=== PATIENT | male | born 1975 | race Caucasian/White ===

== ENCOUNTER 2020-05-24 10:41 | Emergency (ER) | payer BC ==
--- NOTE | 2020-05-24 13:54 | ER ---
REASON FOR EMERGENCY ROOM VISIT: Laceration, right middle finger. HISTORY: This 44-year-old man with type 2 diabetes, was doing some work on his boat before his planned fishing outing. He was using an electric screwdriver and accidentally punctured his right middle finger with it. He had some fair amount of bleeding from this, but he denies any numbness. He came in with the finger wrapped and it was not actively bleeding. He states the screwdriver was very clean. His last tetanus toxoid was in 2018. ALLERGIES: HE DENIES ANY ALLERGIES TO MEDICATIONS. MEDICATIONS: Reviewed. PHYSICAL EXAMINATION: EXTREMITIES: His right hand reveals approximately 5-6 mm v-shaped laceration of his right middle finger along the lateral aspect just proximal to the DIP joint. This is a v-shaped laceration. There is some subcutaneous fat extruding. Distal sensation is intact. His flexor and extensor tendon functions are intact. IMPRESSION; Laceration, right middle finger FURTHER EMERGENCY ROOM COURSE: The patient's tetanus booster was last administered in 2018. His hand was soaked in Hibiclens, soap and water and the finger was painted with Betadine. 1% plain Xylocaine was used for local anesthesia. Using aseptic technique, a single 1.0 monofilament 3-0 nylon suture was placed to approximate the edges. Bacitracin was applied to this, followed by a non-sticky dressing and an occlusive dressing using tube gauze. He was instructed regarding wound care, and symptoms and signs of infection and to have the suture removed in 7-10 days. There was only 1 single suture placed to approximate the skin edges. RADHA/MIKAYLA /[id number] MIGUEL
== END 2020-05-24 11:45 | disposition home or self-care (01) ==
LOC: LB.ED 10:41
DX: S61.212A Laceration without foreign body of right middle finger without damage to nail, initial encounter (principal); E11.9 Type 2 diabetes mellitus without complications; W27.0XXA Contact with workbench tool, initial encounter
CPT/HCPCS: 12001; 99282